=== PATIENT | female | born 1970 | race Caucasian/White ===

== ENCOUNTER 2018-05-08 07:58 | Day surgery (SDC) | payer OTHER ==
[2018-05-07 12:10] VITALS: BMI 27.4
[2018-05-08] MEDS ORDERED: CEFAZOLIN/Water 2 GM/20 ML SYRINGE ONE (08:37)
[2018-05-08] MEDS ORDERED: Ketorolac Tromethamine 30 MG/ML VIAL ONE (08:38)
[2018-05-08 08:44] LABS: #Basophils 0.1 thou/uL (0.0-0.2); #Eosinphils 0.1 thou/uL (0.0-0.7); #Lymphocytes 1.5 thou/uL (1.20-3.40); #Monocytes 0.5 thou/uL (0.11-0.59); %Eosinophils 2.9 % (0.0-10.0); %Lymphocytes 29.3 % (21.0-51.0); %Neutrophils 57.8 % (42.0-75.0); Hemoglobin 14.9 g/dL (12.0-16.0); Mean Corpuscular HGB CONC 34.2 g/dL (32.0-36.0); Mean Corpuscular Hemoglobin 32.5 pg (27.0-31.0); Mean Corpuscular Volume 95.2 fL (78.0-98.0); Mean Platelet Volume 7.2 fL (7.4-10.4); Platelet Count 263 thou/uL (130-400); RBC Distribution Width 11.4 % (11.5-14.5); Red Blood Cell (RBC) Count 4.57 mill/uL (4.20-5.40); White Blood Cell (WBC) Count 5.2 thou/uL (4.8-10.8)
[2018-05-08] MEDS ORDERED: Scopolamine 1.5 mg/72 hour Patch ONE (08:53)
[2018-05-08 09:11] LABS: Anion Gap 9 mmol/L (10-20); BUN (Urea Nitrogen) 14 mg/dL (7.0-18.7); Calc. Creatinine Clearance 89 mL/min (70-130); Calcium 8.9 mg/dL (7.8-10.44); Carbon Dioxide 26 mmol/L (22-29); Chloride 107 mmol/L (98-107); Estimated GFR-MDRD 75; Glucose 91 mg/dL (70-105); Potassium 4.2 mmol/L (3.5-5.1); Sodium 138 mmol/L (136-145)
[2018-05-08] MEDS ORDERED: Fentanyl 100 MCG/2 ML VIAL ONE (10:39)
[2018-05-08] MEDS ORDERED: Midazolam HCl 2 mg/2 ml Vial ONE (10:39)
[2018-05-08] MEDS ORDERED: Bupivacaine/Epinephrine 0.25% 30 ML VIAL ONE (10:40)
[2018-05-08] MEDS ORDERED: Lidocaine 1% PF 5 ML VIAL ONE (13:08)
[2018-05-08] MEDS ORDERED: PROPOFOL 200 MG/20 ML VIAL ONE (13:08)
[2018-05-08] MEDS ORDERED: Ondansetron HCl/PF 4 MG/2 ML Vial ONE (13:08)
[2018-05-08] MEDS ORDERED: Dexamethasone 20 MG/5 ML VIAL ONE (13:08)
[2018-05-08] MEDS ORDERED: PHENYLEPHRINE-NS 100 MCG/ML 10 ML SYRINGE ONE (13:08)
--- NOTE | 2018-05-08 13:41 | OP ---
DATE OF OPERATION: 05/08/2018 PREOPERATIVE DIAGNOSIS: Recurrent umbilical and supraumbilical hernia. POSTOPERATIVE DIAGNOSIS: Recurrent umbilical and supraumbilical hernia. OPERATION PERFORMED: Repair of recurrent umbilical and supraumbilical hernia with a 6.4 cm Ventralex mesh patch. SURGEON: Benitez Tsang M.D. ANESTHESIA: General with laryngeal mask airway. INDICATIONS: The patient is a 48-year-old white female. She had an umbilical hernia repaired in [facility] earlier this year. She had almost immediate recurrence. She has a significant visible bulge just superior to her umbilicus. This is symptomatic as well. She is taken to the operating r oom at this time for repair. DESCRIPTION OF OPERATION: Informed consent was obtained. The patient was taken to the operating robbie m where general anesthesia obtained with the patient in supine position. Abdomen was prepped with Ch loraPrep and draped in sterile fashion. Local anesthetic was infiltrated with 0.25% Marcaine with ep inephrine. Curvilinear infraumbilical incision was created. Dissection was carried through skin and subcutaneous tissue. Dissection was carried down to the fascia and then carried superiorly. The um bilicus was elevated off the underlying fascia and hernia sac. There were 3 separate hernia defects that were identified. There were a couple of small fascial bridges between these. Each of these was incised to create a single defect. I dissected the herniated contents circumferentially and was abl e to quickly invert them into the preperitoneal cavity. I then performed a preperitoneal dissection, elevating the preperitoneal fatty tissue off the underlying fascia circumferentially. The anterior aspect of the fascia was cleared as well. A 6.4 cm Ventralex mesh patch was obtained and passed in the preperitoneal space. It was pulled snug against the abdominal wall. The mesh straps were secured to fascia superiorly and inferiorly using single interrupted sutures of 0 Prolene. The lateral aspects were closed with single interrupted sut ures of 0 Prolene as well, incorporating bites of the anterior leaflet of the mesh patch. The umbilicus was secured down to the fascia with 2 interrupted sutures of 3-0 Vicryl. The wound was additionally locally anesthetized. The subcutaneous tissue was approximated with a running suture o f 3-0 Monocryl and skin edges approximated with 4-0 Monocryl. Dermabond was placed externally. A co mpression dressing was then placed using cotton balls and a Tegaderm dressing. There were no complic ations. The patient tolerated the procedure well and was taken to recovery room in stable condition.
== END 2018-05-09 15:25 | disposition home or self-care (01) ==
LOC: SDC 07:58
PROVIDERS: ATTEND Specialist
DX: K42.9 Umbilical hernia without obstruction or gangrene (principal); K43.9 Ventral hernia without obstruction or gangrene; Z88.2 Allergy status to sulfonamides; Z88.8 Allergy status to other drugs, medicaments and biological substances; Z79.899 Other long term (current) drug therapy
CPT/HCPCS: 36415; 80048; 85025; J0131; J1100; J1885; J2001; J2250; J2405; J2704; J3010